=== PATIENT | female | born 1965 | race Caucasian/White ===

== ENCOUNTER 2020-04-07 05:20 | Day surgery (SDC) | payer BC ==
[2020-04-05 16:40] VITALS: BMI 23.5
[2020-04-07 11:35] VITALS: TEMP 97.3
[2020-04-07 12:43] VITALS: BP 113/52; PULSE 72
== END 2020-04-07 12:10 | disposition home or self-care (01) ==
LOC: JASU-ENDO 05:20
PROVIDERS: ATTEND Internal Medicine Gastroenterology
PROC: 0DJD8ZZ Inspection of Lower Intestinal Tract, Via Natural or Artificial Opening Endoscopic (ICD-10-PCS; principal; 2020-04-07 11:30)
DX: Z12.11 Encounter for screening for malignant neoplasm of colon (principal)
CPT/HCPCS: 81025